=== PATIENT | female | born 1985 | race Caucasian/White ===

== ENCOUNTER 2018-02-24 18:46 | Emergency (ER) | payer OTHER ==
[~2018-02-24] VITALS: Ht 160 cm; Wt 83.5 kg
[2018-02-24 18:56] VITALS: Ht 160 cm; Wt 83.5 kg
[2018-02-24 21:58] VITALS: BP 127/87
== END 2018-02-24 21:58 | disposition home or self-care (01) ==
LOC: ED 18:46
DX: J02.9 Acute pharyngitis, unspecified (principal); R03.0 Elevated blood-pressure reading, without diagnosis of hypertension
CPT/HCPCS: J1100